=== PATIENT | female | born 2000 | race Caucasian/White ===

== ENCOUNTER → 2024-04-30 | Outpatient (CLI) | payer OTHER ==
[2024-04-30 18:35] LABS: Basophils # (A) 0.07 X 10*3/uL (0.00-0.10); Basophils % (A) 1.3 %; Eosinophils # (A) 0.12 X 10*3/uL (0.04-0.35); Eosinophils % (A) 2.2 %; HCT 43.2 % (37.2-46.3); HGB 14.1 g/dL (12.0-15.0); Lymphocytes # (A) 2.57 X 10*3/uL (0.90-5.00); Lymphocytes % (A) 47.2 %; MCH 30.4 pg (27.0-32.0); MCHC 32.6 g/dL (32.0-37.0); MCV 93.1 FL (80.0-97.0); Mean Platelet Volume 10.1 FL (9.5-12.2); Monocytes # (A) 0.51 X 10*3/uL (0.20-1.00); Monocytes % (A) 9.4 %; NRBC Per 100 WBC 0 X 10*3/uL (0.00-0.01); Neutrophils # (A) 2.17 X 10*3/uL (1.80-7.70); Neutrophils % (A) 39.7 %; Platelet Count 330 X 10*3/uL (140-440); RBC 4.64 X 10*6/uL (4.10-5.20); RDW 11.9 % (11.5-14.5); WBC 5.45 X 10*3/uL (4.50-10.00)
[2024-04-30 19:41] LABS: HCG,Quantitative Serum <3.0 mIU/mL (0.0-6.0)
== END | disposition home or self-care (01) ==
LOC: LABWHC1 15:11
PROVIDERS: ATTEND Dermatology MOHS-Micrographic Surgery
DX: L70.0 Acne vulgaris (principal); B07.0 Plantar wart; R23.8 Other skin changes
CPT/HCPCS: 36415; 82465; 84478; 84702; 85025

== ENCOUNTER → 2024-08-27 | Outpatient (CLI) | payer OTHER ==
[2024-08-27 15:19] LABS: Basophils # (A) 0.02 X 10*3/uL (0.00-0.10); Basophils % (A) 0.5 %; Eosinophils # (A) 0.06 X 10*3/uL (0.04-0.35); Eosinophils % (A) 1.5 %; HCT 41.6 % (37.2-46.3); HGB 13.9 g/dL (12.0-15.0); Lymphocytes # (A) 2.13 X 10*3/uL (0.90-5.00); MCH 31.1 pg (27.0-32.0); MCHC 33.4 g/dL (32.0-37.0); MCV 93.1 FL (80.0-97.0); Mean Platelet Volume 10.6 FL (9.5-12.2); Monocytes # (A) 0.38 X 10*3/uL (0.20-1.00); Monocytes % (A) 9.3 %; NRBC Per 100 WBC 0 X 10*3/uL (0.00-0.01); Neutrophils % (A) 36.5 %; Platelet Count 284 X 10*3/uL (140-440); RBC 4.47 X 10*6/uL (4.10-5.20); RDW 11.9 % (11.5-14.5)
[2024-08-27 15:40] LABS: ALT 18 U/L (8-44); AST 24 U/L (13-35); HCG,Quantitative Serum <3.0 mIU/mL (0.0-6.0)
== END | disposition home or self-care (01) ==
LOC: LABWHC1 10:38
PROVIDERS: ATTEND Internal Medicine
DX: L70.0 Acne vulgaris (principal); L85.3 Xerosis cutis; K13.0 Diseases of lips; B35.4 Tinea corporis; R04.0 Epistaxis; Z79.899 Other long term (current) drug therapy
CPT/HCPCS: 36415; 82465; 84450; 84460; 84478; 84702; 85025